=== PATIENT | female | born 1965 | race Caucasian/White ===

== ENCOUNTER → 2017-02-06 17:09 | Outpatient (CLI) | payer OTHER | END | disposition home or self-care (01) | LOC: D.MAMMO 11:30 | DX: Z12.31 Encounter for screening mammogram for malignant neoplasm of breast (principal) ==

== ENCOUNTER → 2017-03-09 22:41 | Outpatient (CLI) | payer OTHER | END | disposition home or self-care (01) | LOC: D.MAMMO 14:00 | DX: R92.8 Other abnormal and inconclusive findings on diagnostic imaging of breast (principal) ==

== ENCOUNTER 2018-04-16 06:34 | Outpatient (CLI) | payer OTHER | END 2018-04-16 23:59 | disposition home or self-care (01) | LOC: D.MAMMO 06:34 | DX: Z12.31 Encounter for screening mammogram for malignant neoplasm of breast (principal) ==

== ENCOUNTER 2019-10-28 08:00 | Outpatient (CLI) | payer BC | END 2019-10-28 23:59 | disposition home or self-care (01) | LOC: D.MAMMO 08:00 | PROVIDERS: ATTEND Nurse Practitioner | DX: Z12.31 Encounter for screening mammogram for malignant neoplasm of breast (principal) ==

== ENCOUNTER → 2020-07-20 09:11 | Outpatient (CLI) | payer BC | END | disposition home or self-care (01) | LOC: D.US 09:11 | PROVIDERS: ATTEND Internal Medicine Interventional Cardiology | DX: R42 Dizziness and giddiness (principal) ==

== ENCOUNTER → 2020-12-21 07:58 | Outpatient (CLI) | payer OTHER | END | disposition home or self-care (01) | LOC: D.US 07:58 | PROVIDERS: ATTEND Nurse Practitioner | DX: R74.01 Elevation of levels of liver transaminase levels (principal) ==

== ENCOUNTER 2020-12-22 14:30 | Outpatient (CLI) | payer OTHER | END 2020-12-22 23:59 | disposition home or self-care (01) | LOC: D.MAMMO 14:30 | PROVIDERS: ATTEND Nurse Practitioner | DX: N63.14 Unspecified lump in the right breast, lower inner quadrant (principal); N63.11 Unspecified lump in the right breast, upper outer quadrant; N63.21 Unspecified lump in the left breast, upper outer quadrant; N63.23 Unspecified lump in the left breast, lower outer quadrant; N63.24 Unspecified lump in the left breast, lower inner quadrant ==